=== PATIENT | male | born 2005 | race African-American/Black ===

== ENCOUNTER 2023-01-27 07:39 | Emergency (ER) | payer SELFPAY ==
[~2023-01-27] VITALS: Ht 188 cm; Wt 95.5 kg
[2023-01-27 07:55] VITALS: BP 135/75; PULSE 87; RESP 18; TEMP 98.9
[2023-01-27 08:19] LABS: COVID AG,FIA SOURCE NASAL SWAB
[2023-01-27 09:35] LABS: RAPID GROUP A STREP NEGATIVE (NEGATIVE)
[2023-01-27 09:40] LABS: INFLUENZA TYPE A NEGATIVE FOR TYPE A (NEGATIVE); INFLUENZA TYPE B NEGATIVE FOR TYPE B (NEGATIVE)
== END 2023-01-27 11:03 | disposition left against medical advice (07) ==
LOC: EMS 07:43
DX: J02.9 Acute pharyngitis, unspecified (principal); Z20.822 Contact with and (suspected) exposure to COVID-19; Z53.21 Procedure and treatment not carried out due to patient leaving prior to being seen by health care provider
CPT/HCPCS: 87430; 87804; 99281; Z7502